=== PATIENT | female | born 1965 | race Caucasian/White ===

== ENCOUNTER 2020-08-26 22:54 | Inpatient (IN) | payer OTHER ==
[~2020-08-26] VITALS: Ht 157.5 cm; Wt 54.0 kg
[2020-08-26 23:58] VITALS: BP 116/61
[2020-08-27] VITALS (9 sets, daily range): BP systolic 89–110; BP diastolic 38–66
[2020-08-27] MEDS: fentaNYL PF VIAL 100 MCG/2 ML VIAL IVP PRN ×3 (00:22→09:36)
--- NOTE | 2020-08-27 01:03 | NUR ---
Admit from [facility] ED via EMS/rcylinder to [facility] room 210. A/O x 4. Transferred from [facility] to bed with 3 person lift. 9 Hebrew Cook Cath Chest Tube Left upper Mid-Clavicular placed at [facility] ED and in place on arrival. Continues suction hooked up to chest tube. Spoke to Dr Garza and obtained admit orders. Orientated patient to room and call light. Reviewed POC to include CT to Suction, Chest X-rays and lab draws. Verbalized understanding. Resting in bed. Call light at hand.
--- NOTE | 2020-08-27 03:20 | RAD ---
Study: XR CHEST 1V Indication: Pneumothorax. Left chest tube. Comparison: 08/26/2020 Findings: Unchanged positioning of a left pleural catheter with the tip at the apex. No pneumothorax is identified on the right or left. Asymmetric hypoattenuation at the right lung apex favored secondary to bullae formation. Flattening of the diaphragm. No confluent infiltrate or pleur al effusion. Unremarkable cardiomediastinal silhouette and tomas. Benign-appearing sclerosis along the lateral margin of the proximal right humerus. Impression: 1. Unchanged positioning of a left pleural catheter. No pneumothorax seen on either side. 2. Emphysema with flattening of the diaphragm and bullae formation best appreciated at the right lung apex. Electronically signed by: MARYELLEN PATINO MD (08/27/2020 3:17 AM) [facility] DOLOR[facility]
[2020-08-27] MEDS: ONDANSETRON PF 4 MG/2 ML VIAL. IVP PRN ×2 (05:50→17:09)
[2020-08-27 08:16] LABS: BASO % 1 % (0-3); EOS # 0.4 x10^3/uL (0.0-0.7); EOS % 6 % (0-3); HEMOGLOBIN 11.5 g/dL (12.0-15.5); LYMPH # 1.5 x10^3/uL (1.0-4.8); LYMPH % 20 % (24-48); MEAN CORPUSCULAR HEMOGLOBIN 30 pg (25-35); MEAN CORPUSCULAR HGB CONC 34 g/dL (31-37); MEAN CORPUSCULAR VOLUME 89 fL (79-100); MONO # 0.7 x10^3/uL (0.0-1.1); MONO % 10 % (0-9); NEUT # 4.6 x10^3/uL (1.8-7.7); NEUT % 64 % (31-73); PLATELET COUNT 324 x10^3/uL (140-400); RED BLOOD COUNT 3.84 x10^6/uL (3.50-5.40); RED CELL DISTRIBUTION WIDTH 12.8 % (11.5-14.5); WHITE BLOOD COUNT 7.2 x10^3/uL (4.0-11.0)
[2020-08-27 08:37] LABS: ALBUMIN 3.7 g/dL (3.4-5.0); ALBUMIN/GLOBULIN RATIO 1.2 (1.0-1.7); CALCIUM 8.6 mg/dL (8.5-10.1); CREATININE 0.7 mg/dL (0.6-1.0); GFR 87.2; POTASSIUM 4.3 mmol/L (3.5-5.1); TOTAL BILIRUBIN 1.2 mg/dL (0.2-1.0); TOTAL PROTEIN 6.9 g/dL (6.4-8.2)
[2020-08-27] MEDS ORDERED: IV NORMAL SALINE 1000ML BAG 1,000 ML IV ONE ×2 (10:30→17:15)
--- NOTE | 2020-08-27 11:48 | HP ---
ADMIT DATE: 08/26/2020 HISTORY OF PRESENT ILLNESS: The patient is a 55-year-old female patient who presented to the emergency room of [facility] with the complaint of chest pain and shortness of breath. The pain is mostly in the left side, has been constant. Pain is worse with deep breath. The pain has been persistent. She rated about 7/10, worse with deep inspiration. She also complained of some intermittent coughing episodes in the past 2 weeks. There was no history of trauma. No recent travel. Denied any chills, rigors or fever. She was investigated in the emergency room and has had an EKG that showed that she was in sinus tachycardia with a heart rate of 160 beats per minute. She does have bimodel P-waves, but no findings of acute STEMI. Her chest x-ray showed that she has large left-sided pneumothorax, for which she has a chest tube placed to intermittent suction. She also had a repeat chest x-ray, which showed well expansion of her left lung. Her white cell count was slightly elevated at 11.7. All other labs are well within normal range and the patient was transferred to [facility] to consult the ship loader. PAST MEDICAL HISTORY: Significant for COPD and tobacco use disorder. She has been smoking for the last 35 years. She is currently vaping. PAST SURGICAL HISTORY: Significant for 3 C-sections, total abdominal hysterectomy, bilateral incisional hernia repair. ALLERGIES: SHE IS ALLERGIC TO CODEINE. MEDICATIONS: She is on no medication except [id number] Tylenol or Advil. FAMILY HISTORY: She has two older brothers and one younger brother and one of the older brother has severe brain injury after he fell. Her father at the age of 27 in a plane crash. Mother is still alive at the age of 78. SOCIAL HISTORY: She is , has three daughters. She is vaping, but has been a smoker for almost 35 years. Does drink alcohol occasionally. Does not use any drugs. 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 REVIEW OF SYSTEMS: The patient denied any blurring of vision, cataracts, glaucoma or macular degeneration. Denied any earache, tinnitus or sensory deafness. Denied any nosebleed, stuffy nose or postnasal drip. Denies any sore throat, sore tongue, toothache, hoarseness of voice or difficulty swallowing. Denies any nausea, vomiting, diarrhea or constipation. Denies any hematemesis, melena, hematochezia. Denies any dysuria, frequency, hematuria. PHYSICAL EXAMINATION: GENERAL: On arrival to the emergency room, she looked well and was clearly in no apparent respiratory distress. No pallor, jaundice, cyanosis. No lymphadenopathy, no thyromegaly. No jugular venous distention. No limb edema. VITAL SIGNS: Her heart rate was 90, blood pressure was 140/85, her temperature was 98.2, respiratory rate was 16 and oxygen saturation was 96% on room air. HEAD, EYES, EARS, NOSE AND THROAT: Normocephalic, atraumatic. NECK: Supple. HEART: Normal first and second heart sounds. No gallop or murmur. CHEST: Chest central trachea, equal bilateral chest expansion, air entry. No crepitations or rhonchi. ABDOMEN: Scaphoid, soft, nontender. NEUROLOGIC: She was grossly intact. LABORATORY DATA: Showed a white cell count of 11,700, hemoglobin 12, hematocrit 37, MCV 88 and platelet count 379,000 with normal manual differential. Her serum sodium 142, potassium 4, chloride 104, bicarbonate 28, anion gap of 10, BUN 12, creatinine 0.8. Estimated GFR was 74 mL per minute. Her glucose 115, calcium was 9.3 and magnesium was 1.9. Total bilirubin, AST, ALT, alkaline phosphatase are normal. Her troponin was less than 0.017. Total protein was 7.8, albumin was 4.1 and lipase was 12. Her first chest x-ray showed the patient has large left-sided pneumothorax after which she had a chest tube placed and repeat chest x-ray showed that the left pneumothorax has resolved and the lung has completely expanded. The patient was transferred to [facility] to consult the ship loader. [facility] [place]: Darlyn TID: [id number]
--- NOTE | 2020-08-27 12:06 | NUR ---
SS following for discharge planning. SS reviewed pt chart and discussed with pt RN. Pt is from home and is currently requiring oxygen at two liters nasal canula. Chest tube in place. Pt has no home oxygen. Pulmonology consulted. SS will continue to follow for discharge planning.
--- NOTE | 2020-08-27 14:05 | PDOC ---
PULMONARY PROGRESS NOTES DATE: 08/27/20 TIME: 14:03 Vitals Vital Signs Date Time Temp Pulse Resp B/P (MAP) Pulse Ox O2 Delivery O2 Flow Rate FiO2 08/27/20 11:26 98.0 71 20 98/38 (58) 100 Nasal Cannula 2.0 98.0 Labs Laboratory Tests Test 08/27/20 07:45 White Blood Count 7.2 x10^3/uL (4.0-11.0) Red Blood Count 3.84 x10^6/uL (3.50-5.40) Hemoglobin 11.5 g/dL (12.0-15.5) Hematocrit 34.0 % (36.0-47.0) Mean Corpuscular Volume 89 fL (79-100) Mean Corpuscular Hemoglobin 30 pg (25-35) Mean Corpuscular Hemoglobin Concent 34 g/dL (31-37) Red Cell Distribution Width 12.8 % (11.5-14.5) Platelet Count 324 x10^3/uL (140-400) Neutrophils (%) (Auto) 64 % (31-73) Lymphocytes (%) (Auto) 20 % (24-48) Monocytes (%) (Auto) 10 % (0-9) Eosinophils (%) (Auto) 6 % (0-3) Basophils (%) (Auto) 1 % (0-3) Neutrophils # (Auto) 4.6 x10^3/uL (1.8-7.7) Lymphocytes # (Auto) 1.5 x10^3/uL (1.0-4.8) Monocytes # (Auto) 0.7 x10^3/uL (0.0-1.1) Eosinophils # (Auto) 0.4 x10^3/uL (0.0-0.7) Basophils # (Auto) 0.0 x10^3/uL (0.0-0.2) Sodium Level 144 mmol/L (136-145) Potassium Level 4.3 mmol/L (3.5-5.1) Chloride Level 105 mmol/L (98-107) Carbon Dioxide Level 31 mmol/L (21-32) Anion Gap 8 (6-14) Blood Urea Nitrogen 11 mg/dL (7-20) Creatinine 0.7 mg/dL (0.6-1.0) Estimated GFR (Cockcroft-Gault) 87.2 BUN/Creatinine Ratio 16 (6-20) Glucose Level 82 mg/dL (70-99) Calcium Level 8.6 mg/dL (8.5-10.1) Total Bilirubin 1.2 mg/dL (0.2-1.0) Aspartate Amino Transf (AST/SGOT) 10 U/L (15-37) Alanine Aminotransferase (ALT/SGPT) 21 U/L (14-59) Alkaline Phosphatase 73 U/L (46-116) Total Protein 6.9 g/dL (6.4-8.2) Albumin 3.7 g/dL (3.4-5.0) Albumin/Globulin Ratio 1.2 (1.0-1.7) Laboratory Tests Test 08/27/20 07:45 White Blood Count 7.2 x10^3/uL (4.0-11.0) Red Blood Count 3.84 x10^6/uL (3.50-5.40) Hemoglobin 11.5 g/dL (12.0-15.5) Hematocrit 34.0 % (36.0-47.0) Mean Corpuscular Volume 89 fL (79-100) Mean Corpuscular Hemoglobin 30 pg (25-35) Mean Corpuscular Hemoglobin Concent 34 g/dL (31-37) Red Cell Distribution Width 12.8 % (11.5-14.5) Platelet Count 324 x10^3/uL (140-400) Neutrophils (%) (Auto) 64 % (31-73) Lymphocytes (%) (Auto) 20 % (24-48) Monocytes (%) (Auto) 10 % (0-9) Eosinophils (%) (Auto) 6 % (0-3) Basophils (%) (Auto) 1 % (0-3) Neutrophils # (Auto) 4.6 x10^3/uL (1.8-7.7) Lymphocytes # (Auto) 1.5 x10^3/uL (1.0-4.8) Monocytes # (Auto) 0.7 x10^3/uL (0.0-1.1) Eosinophils # (Auto) 0.4 x10^3/uL (0.0-0.7) Basophils # (Auto) 0.0 x10^3/uL (0.0-0.2) Sodium Level 144 mmol/L (136-145) Potassium Level 4.3 mmol/L (3.5-5.1) Chloride Level 105 mmol/L (98-107) Carbon Dioxide Level 31 mmol/L (21-32) Anion Gap 8 (6-14) Blood Urea Nitrogen 11 mg/dL (7-20) Creatinine 0.7 mg/dL (0.6-1.0) Estimated GFR (Cockcroft-Gault) 87.2 BUN/Creatinine Ratio 16 (6-20) Glucose Level 82 mg/dL (70-99) Calcium Level 8.6 mg/dL (8.5-10.1) Total Bilirubin 1.2 mg/dL (0.2-1.0) Aspartate Amino Transf (AST/SGOT) 10 U/L (15-37) Alanine Aminotransferase (ALT/SGPT) 21 U/L (14-59) Alkaline Phosphatase 73 U/L (46-116) Total Protein 6.9 g/dL (6.4-8.2) Albumin 3.7 g/dL (3.4-5.0) Albumin/Globulin Ratio 1.2 (1.0-1.7) Medications Active Scripts Medications Dose Route/Sig Max Daily Dose Days Date Category No Known Medications Prior To Admisstion (Info) Each 1 Each NO HOME MEDICATIONS 08/26/20 Reported Impression . FULL CONSULT DICTATED PTX CURRENT CXR NO PTX WILL DC WALL SUCTION REPEAT CXR IN 3 HOURS D/W SHARON NESBITT MD Aug 27, 2020 14:05
[2020-08-27] MEDS ORDERED: predniSONE 10 MG TABLET PO ONE (14:15)
[2020-08-27] MEDS: ACETAMINOPHEN 325 MG TABLET. PO PRN (14:58)
--- NOTE | 2020-08-27 17:01 | RAD ---
EXAM: Chest, single view. HISTORY: Pneumothorax. COMPARISON: 08/27/2020 FINDINGS: A frontal view of the chest is obtained. There has been no change in positioning of the lef t apical pleural drainage catheter. There is biapical bullous emphysema and pleural parenchymal scarr ing. No convincing pneumothorax is seen. There is no pleural effusion. The heart is normal in size. IMPRESSION: 1. No convincing pneumothorax or change in positioning of a left apical pleural drainage catheter. 2. Biapical bullous emphysema. Electronically signed by: Ashly Bush MD (08/27/2020 4:59 PM) [id number]
--- NOTE | 2020-08-27 18:20 | NUR ---
Radiologist called at 1820 saying there were no changes on patient's chest x-ray. Per Dr. Nunez, chest tube to remain clamped for tonight.
--- NOTE | 2020-08-28 01:56 | PN ---
DATE: 08/27/2020 SUBJECTIVE: The patient is resting, slightly bumped up in bed in no apparent distress. Her chest pain is well controlled. Denied any shortness of breath. We did repeat her chest x-ray here and her lungs continued to be completely expanded. PHYSICAL EXAMINATION: GENERAL: When I examined her this morning, she looked well and was clearly in no apparent respiratory distress. She is slightly pale. No jaundice or cyanosis. No thyromegaly. No jugular distention. No edema. VITAL SIGNS: Heart rate was 60, blood pressure was 89/46, temperature was 98, respiratory rate was 20 and oxygen saturation was 100% on 2 L oxygen. HEENT: Normocephalic, atraumatic. NECK: Supple. HEART: Normal first and second sounds. No gallop or murmur. CHEST: Showed central trachea. Equal bilateral chest expansion and air entry. Vesicular breath sounds. No crepitation or rhonchi. She has a chest tube today. Pleur-Evac on the left side. ABDOMEN: Scaphoid, soft, nontender. NEUROLOGIC: She was grossly intact. LABORATORY DATA: Showed a white cell count 7200, hemoglobin 11, hematocrit 34, MCV 89 and platelet count 324,000. Normal manual differential. Her serum sodium was 144, potassium 4.3, chloride 105, bicarbonate 31, anion gap of 8, BUN 11 and creatinine 0.7. Estimated GFR was 87 mL per minute. Her glucose was 82, calcium was 8.6. Total bilirubin, AST, ALT and alkaline phosphatase were normal. Total protein was 6.9 and albumin 3.7. ASSESSMENT: This is a 55-year-old female patient with spontaneous pneumothorax, status post chest tube placement. Her lungs are well expanded. Chronic obstructive pulmonary disease. The patient has also nicotine dependence. She has been a smoker for the last 35 years and is currently vaping. The patient was strongly advised to quit smoking. Meanwhile, we will continue with the chest tube. PLAN: We have consulted Dr. Nunez for chest tube management. PETERSON/[facility]: PETERSON/codey TID: [id number]
[2020-08-28 02:51] VITALS: BP 87/46
--- NOTE | 2020-08-28 02:57 | CONS ---
DATE OF CONSULTATION: 08/27/2020 ATTENDING PHYSICIAN: Dr. Garza. REASON FOR CONSULTATION: The patient is seen in pulmonary consultation at the request of Dr. Garza for spontaneous left-sided pneumothorax. HISTORY OF PRESENT ILLNESS: The patient is a 55-year-old that has been told that she has had COPD, continues to smoke. She is actually vaping, discontinue cigarettes 9 years ago. Has been short of breath for approximately 2 weeks. Yesterday, she became acutely short of breath and has some chest discomfort, presented to [facility], had a chest x-ray revealing left-sided pneumothorax. She had a chest tube in place. She is now at [facility]. I reviewed her current x-ray, the left lung appears to be fully inflated. She does not have any air leak on chest tube. She is having some discomfort from the chest tube. Otherwise, not more short of air. She denies fever, chills or night sweats. She had COVID back in 03/2020. She actually has completed her two dose vaccination. PAST MEDICAL HISTORY: COPD, COVID-19 in 03/2020, was not hospitalized. She has no other medical history. PAST SURGICAL HISTORY: , total abdominal hysterectomy, bilateral incisional hernia repair. ALLERGIES: CODEINE. MEDICATIONS: List was reviewed. FAMILY HISTORY: Father at the age of 27 in a plane crash. Mother is still alive at the age of 78. No family history of lung cancer. SOCIAL HISTORY: She is , has three daughters, continues to vape. 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 REVIEW OF SYSTEMS: As indicated above, otherwise a 10-point system was reviewed and negative. PHYSICAL EXAMINATION: VITAL SIGNS: Stable. O2 saturation was greater than 94%, currently on 2 liters. HEENT: Eyes, the sclerae were nonicteric. NECK: Jugular venous distention was not elevated. No lymphadenopathy. CHEST: Full expansion. LUNGS: Adequate flow with no wheezes. HEART: Regular rate and rhythm with S1, S2, no S3. ABDOMEN: Soft, nontender, nondistended. EXTREMITIES: No clubbing, cyanosis or edema. DIAGNOSTIC DATA: Reviewed. Chest x-ray reviewed. No pneumothorax was seen. There is flattening of the diaphragm compatible with emphysematous changes. LABORATORY DATA: White count was normal, hemoglobin and hematocrit were noted. Electrolytes were noted. IMPRESSION: 1. 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 2. Acute exacerbation of chronic obstructive pulmonary disease. 3. History of cigarette use. 4. Current vaping. 5. Status post total abdominal hysterectomy, previous . PLAN: 1. The patient currently does not have an air leak, we will discontinue wall suction. 2. Repeat chest x-ray in 3 hours. 3. If repeat x-ray revealed no pneumothorax, clamp tube, repeat x-ray in the a.m. 4. Treat acute exacerbation of COPD with steroids. No need for antibiotics. 5. The patient instructed on the importance of discontinuing her taping. PK/[facility] [place] DR: Lisa TID: [id number]
[2020-08-28 07:00] VITALS: BP 101/56
--- NOTE | 2020-08-28 08:26 | RAD ---
EXAM: Chest, single view. HISTORY: Pneumothorax. COMPARISON: 08/27/2020 FINDINGS: A frontal view of the chest is obtained. There is a left apical pleural drainage catheter u nchanged in position. There is right to left apical bullous emphysema. No convincing pneumothorax is seen. There is no pleural effusion. The heart is normal in size. IMPRESSION: 1. Stable left apical pleural drainage catheter without evidence of a pneumothorax 2. Right greater than left apical bullous emphysema. Electronically signed by: Ashly Bush MD (08/28/2020 8:24 AM) [id number]
--- NOTE | 2020-08-28 09:35 | PDOC ---
PULMONARY PROGRESS NOTES DATE: 08/28/20 TIME: 09:35 Subjective Patient not more short of air. Vitals Vital Signs Date Time Temp Pulse Resp B/P (MAP) Pulse Ox O2 Delivery O2 Flow Rate FiO2 08/28/20 07:00 98.6 84 18 101/56 (71) 97 Room Air 98.6 08/28/20 02:51 2.0 ROS: No Nausea, No Chest Pain, No Abdominal Pain, No Increase Cough General: Alert Lungs: Clear Cardiovascular: S1, S2 Abdomen: Soft Neuro Exam: Alert Extremities: No Edema Skin: Warm Labs Laboratory Tests Test 08/27/20 07:45 White Blood Count 7.2 x10^3/uL (4.0-11.0) Red Blood Count 3.84 x10^6/uL (3.50-5.40) Hemoglobin 11.5 g/dL (12.0-15.5) Hematocrit 34.0 % (36.0-47.0) Mean Corpuscular Volume 89 fL (79-100) Mean Corpuscular Hemoglobin 30 pg (25-35) Mean Corpuscular Hemoglobin Concent 34 g/dL (31-37) Red Cell Distribution Width 12.8 % (11.5-14.5) Platelet Count 324 x10^3/uL (140-400) Neutrophils (%) (Auto) 64 % (31-73) Lymphocytes (%) (Auto) 20 % (24-48) Monocytes (%) (Auto) 10 % (0-9) Eosinophils (%) (Auto) 6 % (0-3) Basophils (%) (Auto) 1 % (0-3) Neutrophils # (Auto) 4.6 x10^3/uL (1.8-7.7) Lymphocytes # (Auto) 1.5 x10^3/uL (1.0-4.8) Monocytes # (Auto) 0.7 x10^3/uL (0.0-1.1) Eosinophils # (Auto) 0.4 x10^3/uL (0.0-0.7) Basophils # (Auto) 0.0 x10^3/uL (0.0-0.2) Sodium Level 144 mmol/L (136-145) Potassium Level 4.3 mmol/L (3.5-5.1) Chloride Level 105 mmol/L (98-107) Carbon Dioxide Level 31 mmol/L (21-32) Anion Gap 8 (6-14) Blood Urea Nitrogen 11 mg/dL (7-20) Creatinine 0.7 mg/dL (0.6-1.0) Estimated GFR (Cockcroft-Gault) 87.2 BUN/Creatinine Ratio 16 (6-20) Glucose Level 82 mg/dL (70-99) Calcium Level 8.6 mg/dL (8.5-10.1) Total Bilirubin 1.2 mg/dL (0.2-1.0) Aspartate Amino Transf (AST/SGOT) 10 U/L (15-37) Alanine Aminotransferase (ALT/SGPT) 21 U/L (14-59) Alkaline Phosphatase 73 U/L (46-116) Total Protein 6.9 g/dL (6.4-8.2) Albumin 3.7 g/dL (3.4-5.0) Albumin/Globulin Ratio 1.2 (1.0-1.7) Medications Active Scripts Medications Dose Route/Sig Max Daily Dose Days Date Category No Known Medications Prior To Admisstion (Info) Each 1 Each NO HOME MEDICATIONS 08/26/20 Reported Impression . IMPRESSION: 1. 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 2. Acute exacerbation of chronic obstructive pulmonary disease. 3. History of cigarette use. 4. Current vaping. 5. Status post total abdominal hysterectomy, previous . Plan . Updated 08/28 Chest x-ray reviewed, tube clamped overnight, no pneumothorax, will discontinue tube Obtain CT chest Discharge home today Follow-up with me in the office in October Outpatient PFT PLAN: 1. The patient currently does not have an air leak, we will discontinue wall suction. 2. Repeat chest x-ray in 3 hours. 3. If repeat x-ray revealed no pneumothorax, clamp tube, repeat x-ray in the a.m. 4. Treat acute exacerbation of COPD with steroids. No need for antibiotics. 5. The patient instructed on the importance of discontinuing her taping. SHARON PICKERING MD Aug 28, 2020 09:35
[2020-08-28 11:00] VITALS: BP 98/48
--- NOTE | 2020-08-28 12:00 | NUR ---
SS following up with discharge planning. SS reviewed pt chart and discussed with pt RN. Pt is from home and is currently on room air. Chest tube was clamped yesterday. Possible removal today. Discharge plan is to home when medically ready. SS will continue to follow for discharge planning.
[2020-08-28 15:09] VITALS: BP 97/43
--- NOTE | 2020-08-28 16:15 | RAD ---
EXAM: Chest CT without intravenous contrast. HISTORY: Pneumothorax. TECHNIQUE: Computed tomographic images of the chest were obtained without contrast. Multiplanar refor matting was performed. *One or more of the following individualized dose reduction techniques were utilized for this examina tion: 1. Automated exposure control. 2. Adjustment of the mA and/or kV according to patient size. 3. Use of iterative reconstruction technique. COMPARISON: 07/28/2020. FINDINGS: There has been interval left apical pleural drainage catheter removal. There is a small manjula unt of soft tissue gas within the anterior left chest wall due to prior catheter placement. There is a moderate left pneumothorax and small superimposed layering pleural effusion due to a hydropneumotho rax. There is biapical bullous emphysema. There is atelectasis or contusion within the left lung apex. The re are 2 mm nodules along the pleural fissures due to fissural lymph nodes. There is bilateral it sales executive ior dependent and basilar atelectasis. The heart is normal in size. There is trace pericardial fluid. There is no lymphadenopathy. There is no acute finding involving the upper abdomen. There is no suspicious osseous lesion. IMPRESSION: 1. Moderate left pneumothorax status post pleural drainage catheter removal. There is also a small la yering left pleural effusion consistent with a hydropneumothorax. 2. Biapical predominant bullous emphysema with superimposed left apical atelectasis, scarring or cont usion. Findings were discussed with Phillip, the nurse caring for the patient, at 1600 hours on 08/28/2020. FOR INTERNAL CODING PURPOSES RESULT CODE: (C) Electronically signed by: Ashly Bush MD (08/28/2020 4:13 PM) [id number]
[2020-08-28] MEDS ORDERED: LIDOCAINE 1% Multi-Dose 20 ML VIAL. INJ ONE (16:30)
[2020-08-28] MEDS: fentaNYL PF VIAL 100 MCG/2 ML VIAL IVP PRN ×4 (17:07→22:56)
--- NOTE | 2020-08-28 17:17 | PDOC4 ---
PROCEDURE Procedure Chest tube placement Indication patient with recurrent pneumothorax, status post removal of chest tube, after a 24 hours of clamping tube with no significant pneumothorax on repeat chest x-ray., CT was obtain to visualize the lungs. CT reviewed there is severe emphysematous changes along with recurrent pneumothorax Utilizing sterile technique. A Cook catheter was placed in the mid axillary intercostal space. 1% lidocaine was utilized to anesthetize the intercostal space. I enter the pleural space doing the anesthetization. There was air bubbles. A stab wound was performed with a size 11 scalpel. A Cook catheter was placed utilizing the Seldinger's technique. There was bubbling once Cook catheter was placed. There was good pleural variation. Impression recurrent spontaneous pneumothorax, patient was walking to the bathroom, and coughed. Plan insertion of a Cook pneumothorax catheter. With no immediate complications. Patient tolerated procedure well. We will obtain chest x-ray for placement placed chest tube on wall suction SHARON PICKERING MD Aug 28, 2020 17:17
--- NOTE | 2020-08-28 17:44 | RAD ---
AP chest. HISTORY: Pneumothorax AP view was taken of the chest. There is a new left chest tube. Pneumothorax noted on the CT has impr henok. No new infiltrates are noted. IMPRESSION: 1. Left chest tube in place. 2. Improved left pneumothorax. Electronically signed by: Alex Messina MD (08/28/2020 5:42 PM) [facility]
[2020-08-28 18:24] VITALS: BP 119/52
--- NOTE | 2020-08-28 18:33 | NUR ---
patient's repeat CT of chest showed a moderate pneumothorax and critical results called to me at 1612. Paged Dr. Nunez at 1613. Dr Nunez returned call at 1614. Dr. Nunez placed a L sided chest tube at approx 1645. Patient condition stable. Will continue to monitor
[2020-08-28 23:00] VITALS: BP 101/48
[2020-08-29] VITALS (7 sets, daily range): BP systolic 93–118; BP diastolic 49–61
--- NOTE | 2020-08-29 03:00 | PN ---
DATE: 08/28/2020 SUBJECTIVE: The patient was resting, slightly propped up in bed, in no apparent respiratory distress. She is awake, alert. On questioning her, she denies any complaint. Her chest tube was clamped yesterday. Her chest x-ray continued to show fully expanded left lung. PHYSICAL EXAMINATION: GENERAL: On examining her, she looks well and was clearly in no apparent respiratory distress. No pallor, jaundice, cyanosis or thyromegaly. No jugular venous distention, no limb edema. VITAL SIGNS: Her heart rate was 84, blood pressure is 101/56, temperature was 98.6, respiratory rate was 18 and oxygen saturation was 97% on room air. HEENT: Normocephalic, atraumatic. NECK: Supple. HEART: Showed normal first and second sounds. No gallop or murmur. CHEST: Central trachea, equal bilateral expansion, air entry. Vesicular breath sounds. I could not appreciate any crepitation or rhonchi. She has a left-sided chest tube that is clamped. ABDOMEN: Scaphoid, soft, nontender. NEUROLOGIC: She is grossly intact. LABORATORY DATA: No lab work done this morning. However, her chest x-ray showed that the patient has stable left apical pleural drainage catheter without evidence of pneumothorax, right greater than left apical bullous emphysema. PLAN: To obviously await the decision by the formula room worker to probably remove the catheter. I gave instructions to the nursing staff to call me if Dr. Nunez decide to discharge her home. Otherwise, we will discharge her home tomorrow. HOWARD DR: Darlyn TID: [id number]
[2020-08-29] MEDS: fentaNYL PF VIAL 100 MCG/2 ML VIAL IVP PRN ×2 (04:21→07:59)
--- NOTE | 2020-08-29 06:43 | RAD ---
Study: XR CHEST 1V Indication: Pneumothorax Comparison: 08/28/2020 Findings: Left pleural catheter tip projects the medial aspect of the left upper lung overlying the fourth rib. No definitive pneumothorax is seen on either side. No pleural effusion. Linear densities at the righ t lung base are more noticeable from the prior favored mild atelectasis. Emphysema with bullae. Uncha nged cardiomediastinal silhouette. Impression: No appreciable pneumothorax on either side. Left pleural catheter tip projects over the fourth rib. S treaky densities at the right lung base are more noticeable from the prior but favored on account of atelectasis. Electronically signed by: MARYELLEN PATINO MD (08/29/2020 6:40 AM) [facility]
--- NOTE | 2020-08-29 08:51 | PDOC ---
PULMONARY PROGRESS NOTES DATE: 08/29/20 TIME: 08:[address] placed on 08/[address] site no sob Vitals Vital Signs Date Time Temp Pulse Resp B/P (MAP) Pulse Ox O2 Delivery O2 Flow Rate FiO2 08/29/20 07:59 98 Nasal Cannula 08/29/20 07:00 98.2 77 16 118/59 (78) 1.0 98.2 ROS: No Nausea, No Chest Pain, No Abdominal Pain, No Increase Cough General: Alert Lungs: Clear, Other (l ct) Cardiovascular: S1, S2 Abdomen: Soft Neuro Exam: Alert Extremities: No Edema Skin: Warm Medications Active Scripts Medications Dose Route/Sig Max Daily Dose Days Date Category No Known Medications Prior To Admisstion (Info) Each 1 Each NO HOME MEDICATIONS 08/26/20 Reported Comments 08/29 cxr reviewed No appreciable pneumothorax on either side. Left pleural catheter tip projects over the fourth rib. Streaky densities at the right lung base are more noticeable from the prior but favored on account of atelectasis. Impression . IMPRESSION: 1. 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 2. Acute exacerbation of chronic obstructive pulmonary disease. 3. History of cigarette use. 4. Current vaping. 5. Status post total abdominal hysterectomy, previous . Plan . Updated 08/29 ptx re occured s/p new ct 08/[address] chest reviewed Outpatient PFT advised to quit smoking for ever pain control per dr page discussed w rn, dr page Updated 08/28 Chest x-ray reviewed, tube clamped overnight, no pneumothorax, will discontinue tube Obtain CT chest Discharge home today Follow-up with me in the office in October Outpatient PFT PLAN: 1. The patient currently does not have an air leak, we will discontinue wall suction. 2. Repeat chest x-ray in 3 hours. 3. If repeat x-ray revealed no pneumothorax, clamp tube, repeat x-ray in the a.m. 4. Treat acute exacerbation of COPD with steroids. No need for antibiotics. 5. The patient instructed on the importance of discontinuing her taping. JLUIS CHAVEZ MD Aug 29, 2020 08:51
[2020-08-29] MEDS: traMADol 50 MG TABLET PO PRN ×3 (10:23→20:27)
--- NOTE | 2020-08-29 14:19 | PN ---
DATE: 08/29/2020 SUBJECTIVE: The patient has had a spontaneous pneumothorax for which a chest tube was placed at [facility]. Her lung has expanded completely and the chest tube was removed yesterday morning. Unfortunately, she apparently developed shortness of breath. Apparently, after the chest tube was removed, she developed shortness of breath, although I do not have any record of that and she has had a CT scan of the abdomen done around 4:00 o'clock yesterday afternoon, which showed that she was found to have moderate left pneumothorax, status post pleural drainage catheter removal. There is also small layering left side pleural effusion consistent with hydropneumothorax. She has also biapical predominant bullous emphysema with superimposed left apical atelectasis, scarring or contusion and apparently, Dr. Nunez has placed another chest tube yesterday and her chest x-ray this morning showed that the pneumothorax has completely resolved. She has left pleural catheter tip projects over the 4th rib. She has streaky densities at the right lung base, are more noticeable from prior, but favored on account of atelectasis. The patient continued to complain of severe pain especially when she tries to take a deep breath or move. PHYSICAL EXAMINATION: GENERAL: When I examined her, she looked well, pale, not jaundiced, cyanosed, or thyromegaly, no jugular venous distention, no limb edema. VITAL SIGNS: Heart rate was 77, blood pressure is 118/59, temperature was 98.2, respiratory rate was 16 and oxygen saturation was 100% on 1 liter of oxygen. HEENT: Normocephalic, atraumatic. NECK: Supple. HEART: Showed normal first and second heart sounds, no gallop, rub or murmur. CHEST: Showed central trachea. Equal bilateral chest expansion, air entry, vesicular breath sounds. No crepitation or rhonchi. ABDOMEN: Distended, soft, nontender. NEUROLOGIC: She is grossly intact. Her intake was 1000. Output was 1450. LABORATORY DATA: No lab works available this morning. ASSESSMENT AND PLAN: Recurrent left-sided pneumothorax with another chest tube placed in the lung. Her left lung is completely expanded. The patient continued to be with chest tube to intermittent suction. Continue with oxygen therapy. Continue with pain management. PETERSON/NEFTALI DR: PETERSON/codey TID: [id number]
[2020-08-29] MEDS: ONDANSETRON PF 4 MG/2 ML VIAL. IVP PRN (20:26)
[2020-08-30] MEDS: traMADol 50 MG TABLET PO PRN (00:39)
[2020-08-30] MEDS: ONDANSETRON PF 4 MG/2 ML VIAL. IVP PRN ×2 (03:08→10:12)
[2020-08-30 03:10] VITALS: BP 113/56
--- NOTE | 2020-08-30 06:00 | RAD ---
Single view chest dated 08/30/2020. Comparison made to 08/29/2020. CLINICAL INDICATION: Follow-up pneumothorax. FINDINGS: Single upright portable exam performed. Heart and mediastinal contours are stable. Smallbore chest tu be on the left, similar position. There is no significant pneumothorax. Possible small amount of pleu ral gas at the left apex, unchanged. There is some patchy airspace disease at the bilateral lung base s, similar given differences in technique. No new infiltrate or pleural effusion. IMPRESSION: No significant interval change compared to 08/29/2020. Electronically signed by: Pillo Baker MD (08/30/2020 5:57 AM) JACOB
--- NOTE | 2020-08-30 06:50 | PDOC ---
PULMONARY PROGRESS NOTES DATE: 08/30/20 TIME: 06:[address] placed on 08/28 on 02 pain better sob better denies cough Vitals Vital Signs Date Time Temp Pulse Resp B/P (MAP) Pulse Ox O2 Delivery O2 Flow Rate FiO2 08/30/20 03:10 98.1 68 21 113/56 (75) 96 Nasal Cannula 2.0 98.1 ROS: No Nausea, No Chest Pain, No Abdominal Pain, No Increase Cough General: Alert Lungs: Clear, Other (l ct) Cardiovascular: S1, S2 Abdomen: Soft Neuro Exam: Alert Extremities: No Edema Skin: Warm Medications Active Scripts Medications Dose Route/Sig Max Daily Dose Days Date Category No Known Medications Prior To Admisstion (Info) Each 1 Each NO HOME MEDICATIONS 08/26/20 Reported Comments 08/30 There is no significant pneumothorax. Possible small amount of pleural gas at the left apex 08/29 cxr reviewed No appreciable pneumothorax on either side. Left pleural catheter tip projects over the fourth rib. Streaky densities at the right lung base are more noticeable from the prior but favored on account of atelectasis. Impression . IMPRESSION: 1. 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 2. Acute exacerbation of chronic obstructive pulmonary disease. 3. History of cigarette use. 4. Current vaping. 5. Status post total abdominal hysterectomy, previous . Plan . Updated 08/30 ptx re occured s/p new ct 08/28 cxr reviewed no sig ptx ct to water seal CT chest reviewed Outpatient PFT advised to quit smoking for ever pain control per dr page discussed dr camilo saenz rn Updated 08/29 ptx re occured s/p new ct 08/[address] chest reviewed Outpatient PFT advised to quit smoking for ever pain control per dr page discussed dr camilo saenz rn Updated 08/28 Chest x-ray reviewed, tube clamped overnight, no pneumothorax, will discontinue tube Obtain CT chest Discharge home today Follow-up with me in the office in October Outpatient PFT PLAN: 1. The patient currently does not have an air leak, we will discontinue wall suction. 2. Repeat chest x-ray in 3 hours. 3. If repeat x-ray revealed no pneumothorax, clamp tube, repeat x-ray in the a.m. 4. Treat acute exacerbation of COPD with steroids. No need for antibiotics. 5. The patient instructed on the importance of discontinuing her taping. JLUIS CHAVEZ MD Aug 30, 2020 06:50
[2020-08-30 07:55] VITALS: BP 109/70
[2020-08-30 08:16] LABS: HEMATOCRIT 34.3 % (36.0-47.0); HEMOGLOBIN 11.6 g/dL (12.0-15.5); RED BLOOD COUNT 3.89 x10^6/uL (3.50-5.40); RED CELL DISTRIBUTION WIDTH 12.7 % (11.5-14.5); WHITE BLOOD COUNT 10.5 x10^3/uL (4.0-11.0)
[2020-08-30 08:32] LABS: ALBUMIN 3.8 g/dL (3.4-5.0); ALBUMIN/GLOBULIN RATIO 1.2 (1.0-1.7); CALCIUM 8.7 mg/dL (8.5-10.1); CREATININE 0.7 mg/dL (0.6-1.0); GFR 87.2; POTASSIUM 3.7 mmol/L (3.5-5.1); TOTAL BILIRUBIN 0.8 mg/dL (0.2-1.0)
[2020-08-30] MEDS: ACETAMINOPHEN 325 MG TABLET. PO PRN ×2 (10:16→22:16)
[2020-08-30 10:41] VITALS: BP 99/51
--- NOTE | 2020-08-30 11:01 | PN ---
DATE: 08/30/2020 SUBJECTIVE: The patient is resting, slightly propped up, sleeping comfortably, in no apparent distress. She continued with intermittent suction. However, her lung has completely expanded as per x-ray report and clinically her pain is much better controlled with tramadol; however, she is having nausea, for which she is on Zofran. PHYSICAL EXAMINATION: GENERAL: When I examined her this morning, she looked well and was clearly in no apparent respiratory distress, pale, but no jaundice, cyanosis or thyromegaly. No jugular venous distention or limb edema. VITAL SIGNS: Her heart rate was 68, blood pressure is 113/56, temperature was 98.1, respiratory rate was 21 and oxygen saturation was 96% on 2 liters of oxygen. HEAD, EYES, EARS, NOSE AND THROAT: Normocephalic, atraumatic. NECK: Supple. HEART: Normal first and second heart sounds, no gallop or murmur. CHEST: Shows central trachea. Good bilateral chest expansion, air entry, vesicular breath sounds. I could not appreciate any crepitation or rhonchi. She has a chest tube to the left hemithorax intermittent suction. ABDOMEN: Scaphoid, soft, nontender. NEUROLOGIC: She is grossly intact. Her intake over the last 24 hours was 650, output was 325. LABORATORY DATA: Today's labs are still pending at the time of this dictation. IMAGING: Her chest x-ray this morning showed that there is no significant interval change. Heart and mediastinal contours are stable. A small bore chest tube on the left, still in similar position. There is no significant pneumothorax, possible small amount of pleural gas at the left apex, unchanged. PLAN: Obviously to continue with chest tube management. Continue with pain management. According to the customer field representative that she would be clamped tomorrow for 24 hour after which tube will be hopefully removed. If she has recurrence of pneumothorax, she probably needs to be seen by cardiothoracic surgeon for video-assisted thoracoscopy and pleurodesis. PETERSON/PETE DR: Darlyn TID: [id number]
[2020-08-30 14:25] VITALS: BP 98/44
[2020-08-30 19:45] VITALS: BP 102/49
[2020-08-30 22:45] VITALS: BP 104/76
[2020-08-31 03:50] VITALS: BP 104/54
[2020-08-31] MEDS: ACETAMINOPHEN 325 MG TABLET. PO PRN ×2 (06:28→15:49)
[2020-08-31] MEDS: PANTOPRAZOLE 40 MG TABLET.DR. PO SCH (06:34)
[2020-08-31 07:00] VITALS: BP 103/36
--- NOTE | 2020-08-31 08:24 | PN ---
DATE: 08/31/2020 SUBJECTIVE: The patient is resting, slightly propped up in bed, in no apparent distress. On questioning her, she stated that she has mild discomfort and no pain at all at rest. Denied any other complaint. The nursing staff did not voice any concerns that she has generally uneventful night. In fact, she did not care for narcotics and took only Tylenol. PHYSICAL EXAMINATION: GENERAL: When I examined her this morning, she looked pale, no jaundice, cyanosis or thyromegaly. No jugular venous distention. No limb edema. VITAL SIGNS: Her heart rate was 76, blood pressure is 104/54, temperature 98.4, respiratory rate was 18 and oxygen saturation was 99% on 2 liters of oxygen. HEAD, EYES, EARS, NOSE AND THROAT: Normocephalic, atraumatic. NECK: Supple. HEART: Showed normal first and second heart sounds, no gallop, rub or murmur. CHEST: Shows central trachea, equal bilateral chest expansion, air entry. No crepitation or rhonchi. She has a chest tube to underwater seal. ABDOMEN: Scaphoid, soft, nontender. NEUROLOGIC: She is grossly intact. Her intake was 480, output was 1600. LABORATORY DATA: As of yesterday, her serum sodium 140, potassium 3.7, chloride 102, bicarbonate 29, anion gap of 9, BUN 14, creatinine 0.7. Estimated GFR was 87 mL per minute. Her glucose was 82, calcium was 8.7. Total bilirubin, AST, ALT, alkaline phosphatase were normal. Total protein 7, albumin was 3.8. Her serum sodium was 10.5. Her white cell count was 10.5, hemoglobin 11.6, hematocrit 34, MCV 88 and platelet count 327,000. ASSESSMENT: Spontaneous pneumothorax, treated initially with chest tube. Unfortunately, the pneumothorax occurred after the removal of the chest tube and another one was put in. She continues to have the chest tube to underwater seal. The patient has chronic obstructive pulmonary disease and multiple emphysematous bullae, more so on the right apex than the left. PLAN: To continue with chest tube management. Continue with pain management. Her lungs continued to be completely expanded and she might have her tube clamped today for it to be removed tomorrow. [place]ERSON[place] [place]: Darlyn TID: [id number]
--- NOTE | 2020-08-31 10:27 | RAD ---
EXAM: Chest, single view. HISTORY: Pneumothorax. COMPARISON: 08/30/2020 FINDINGS: A frontal view of the chest obtained. There is a left pleural drainage catheter overlying t he left upper thorax. No convincing pneumothorax is seen. There is bilateral apical bullous emphysema and suspected infrahilar atelectasis. The heart is normal in size. IMPRESSION: 1. Left pleural drainage catheter unchanged in position. No pneumothorax is seen. 2. Biapical bullous emphysema. Electronically signed by: Ashly Bush MD (08/31/2020 10:24 AM) [id number]
--- NOTE | 2020-08-31 10:38 | PDOC ---
PULMONARY PROGRESS NOTES DATE: 08/31/20 TIME: 10:33 Subjective PT. remains on 2 liters NC denies increased SOA or cough CT to water seal -- no leak on exam Vitals Vital Signs Date Time Temp Pulse Resp B/P (MAP) Pulse Ox O2 Delivery O2 Flow Rate FiO2 08/31/20 07:00 98.1 66 18 103/36 (58) 98 Nasal Cannula 2.0 98.1 ROS: No Nausea, No Chest Pain, No Abdominal Pain, No Increase Cough General: Alert Lungs: Clear, Other (l ct) Cardiovascular: S1, S2 Abdomen: Soft Neuro Exam: Alert, Oriented Extremities: No Edema Skin: Warm, Dry Labs Laboratory Tests Test 08/30/20 06:10 White Blood Count 10.5 x10^3/uL (4.0-11.0) Red Blood Count 3.89 x10^6/uL (3.50-5.40) Hemoglobin 11.6 g/dL (12.0-15.5) Hematocrit 34.3 % (36.0-47.0) Mean Corpuscular Volume 88 fL (79-100) Mean Corpuscular Hemoglobin 30 pg (25-35) Mean Corpuscular Hemoglobin Concent 34 g/dL (31-37) Red Cell Distribution Width 12.7 % (11.5-14.5) Platelet Count 327 x10^3/uL (140-400) Sodium Level 140 mmol/L (136-145) Potassium Level 3.7 mmol/L (3.5-5.1) Chloride Level 102 mmol/L (98-107) Carbon Dioxide Level 29 mmol/L (21-32) Anion Gap 9 (6-14) Blood Urea Nitrogen 14 mg/dL (7-20) Creatinine 0.7 mg/dL (0.6-1.0) Estimated GFR (Cockcroft-Gault) 87.2 BUN/Creatinine Ratio 20 (6-20) Glucose Level 82 mg/dL (70-99) Calcium Level 8.7 mg/dL (8.5-10.1) Total Bilirubin 0.8 mg/dL (0.2-1.0) Aspartate Amino Transf (AST/SGOT) 13 U/L (15-37) Alanine Aminotransferase (ALT/SGPT) 28 U/L (14-59) Alkaline Phosphatase 68 U/L (46-116) Total Protein 7.0 g/dL (6.4-8.2) Albumin 3.8 g/dL (3.4-5.0) Albumin/Globulin Ratio 1.2 (1.0-1.7) Medications Active Scripts Medications Dose Route/Sig Max Daily Dose Days Date Category No Known Medications Prior To Admisstion (Info) Each 1 Each NO HOME MEDICATIONS 08/26/20 Reported Comments 08/31 CXR IMPRESSION: 1. Left pleural drainage catheter unchanged in position. No pneumothorax is seen. 2. Biapical bullous emphysema. 08/30 There is no significant pneumothorax. Possible small amount of pleural gas at the left apex 08/29 cxr reviewed No appreciable pneumothorax on either side. Left pleural catheter tip projects over the fourth rib. Streaky densities at the right lung base are more noticeable from the prior but favored on account of atelectasis. Impression . IMPRESSION: 1. Spontaneous pneumothorax secondary to underlying chronic obstructive pulmonary disease of the bollus/emphysematous type. 2. Acute exacerbation of chronic obstructive pulmonary disease. 3. History of cigarette use. 4. Current vaping. 5. Status post total abdominal hysterectomy, previous . Plan . PLAN Continue supplemental oxygent o keep sat above 92%, on 2 liters NC Continue chest tube-- no leak on exam, will clamp for 24 hours Repeat CXR in AM NEBS IS at bedside If PTX is not resolved pt. may be candidate for endobronchial valve ptx re occurred now s/p new ct 08/28 cxr reviewed no sig ptx CT chest reviewed -- severe bollus lung disease Outpatient PFT advised to quit smoking for ever D/W ANAYELI TEMPLETON MD Aug 31, 2020 10:38
--- NOTE | 2020-08-31 10:49 | NUR ---
assumed care at 0930. resting in recliner. chest tube is to water seal at this time. received order to clamp for 24 hrs. CN/supervisor silvering department is responsible for the telemetry this shift
[2020-08-31 11:00] VITALS: BP 99/39
--- NOTE | 2020-08-31 11:00 | NUR ---
chest tube clamped. instructed to call if increase in pain, difficulty breathing --verbalized understanding. prune juice given for bowels
[2020-08-31 15:00] VITALS: BP 101/41
--- NOTE | 2020-08-31 15:41 | NUR ---
SW following. Discussed with RN, pt from home, 2L (does not use oxygen at home), pt has a chest tube. Pulmonology following. Pt will need a 6 minute walk prior to discharge if still requiring oxygen. SW will continue to follow.
[2020-08-31 19:45] VITALS: BP 95/47
[2020-08-31 23:25] VITALS: BP 89/67
[2020-09-01] VITALS (18 sets, daily range): BP systolic 92–122; BP diastolic 47–67
[2020-09-01] MEDS: ACETAMINOPHEN 325 MG TABLET. PO PRN (04:29)
[2020-09-01] MEDS: PANTOPRAZOLE 40 MG TABLET.DR. PO SCH (07:30)
--- NOTE | 2020-09-01 09:02 | PDOC ---
PULMONARY PROGRESS NOTES DATE: 09/01/20 TIME: 08:56 Subjective PT. remains on 2 liters NC mild increased SOA CT clamped overnight, large PTX Vitals Vital Signs Date Time Temp Pulse Resp B/P (MAP) Pulse Ox O2 Delivery O2 Flow Rate FiO2 09/01/20 07:00 98.4 85 16 116/65 (82) 96 Nasal Cannula 2.0 98.4 ROS: No Nausea, No Chest Pain, No Abdominal Pain, No Increase Cough General: Alert Lungs: Other (decrease bs left) Cardiovascular: S1, S2 Abdomen: Soft Neuro Exam: Alert, Oriented Extremities: No Edema Skin: Warm, Dry Medications Active Scripts Medications Dose Route/Sig Max Daily Dose Days Date Category No Known Medications Prior To Admisstion (Info) Each 1 Each NO HOME MEDICATIONS 08/26/20 Reported Comments 09/01 CXR IMPRESSION: large left PTX 08/30 There is no significant pneumothorax. Possible small amount of pleural gas at the left apex 08/29 cxr reviewed No appreciable pneumothorax on either side. Left pleural catheter tip projects over the fourth rib. Streaky densities at the right lung base are more noticeable from the prior but favored on account of atelectasis. Impression . IMPRESSION: 1. Spontaneous pneumothorax secondary to underlying chronic obstructive pulmonary disease and severe upper lobe bullous lung disease 2. Acute exacerbation of chronic obstructive pulmonary disease. 3. History of cigarette use. 4. Current vaping. 5. Status post total abdominal hysterectomy, previous . Plan . PLAN D/W Pt and IR. will replace current cook catheter to 12 F chest tube If no improvement, will need endobronchial valve Continue supplemental oxygent o keep sat above 92%, on 2 liters NC Daily cxr NEBS IS at bedside CT chest reviewed -- severe bollus lung disease Outpatient PFT advised to quit smoking for ever D/W RN / IR ANAYELI MOTLEY MD Sep 01, 2020 09:02
--- NOTE | 2020-09-01 09:38 | RAD ---
XR CHEST 1V History: Pneumothorax. Comparison: Multiple priors, most recent 08/31/2020 Technique: Portable AP chest radiograph. Findings: Left apically oriented pleural catheter, unchanged. Recurrent large left pneumothorax. Emphysematous change with right upper lobe bulla. Cardiac silhouette within normal limits. Right proximal humerus s clerotic density likely chondroma. Impression: 1. Recurrent large left pneumothorax. Electronically signed by: Florentin Shin MD (09/01/2020 9:36 AM) [facility]
[2020-09-01 10:45] LABS: PROTHROMBIN TIME PATIENT 13.9 SEC (11.7-14.0)
--- NOTE | 2020-09-01 10:55 | PN ---
DATE: 09/01/2020 SUBJECTIVE: The patient is resting, slightly propped up in bed, no apparent distress. On questioning her, she denied any chest pain or shortness of breath. She is more frustrated. She has been in bed for a long time. Her chest tube was removed yesterday and was reinserted. Unfortunately, a repeat chest x-ray showed that she has large left-sided pneumothorax and apparently the plan is for her to have a larger 12-Irish chest tube placed by the interventional radiologist and if this does not work, the patient will be transferred to [facility] for endobronchial valve. PHYSICAL EXAMINATION: GENERAL: When I examined her, she looked well and was clearly in no apparent respiratory distress. No pallor, jaundice, cyanosis, or thyromegaly. No jugular venous distention. No lower limb edema. VITAL SIGNS: Heart rate was 85, blood pressure is 116/65, temperature was 98.4, respiratory rate was 16 and oxygen saturation was 96% on 2 liters of oxygen. HEAD, EYES, EARS, NOSE AND THROAT: Normocephalic, atraumatic. NECK: Supple. HEART: Showed normal first and second heart sounds. No gallop, rub or murmur. LUNGS: Clear to auscultation. No crepitation or rhonchi. ABDOMEN: Scaphoid, soft, nontender. NEUROLOGIC: She is grossly intact. ASSESSMENT: 1. The patient has now a large left-sided pneumothorax for which a 12-Irish chest tube was planned to be placed by the interventional radiologist. 2. Chronic obstructive pulmonary disease, tobacco use disorder and recently vaping. PLAN: Plan is to continue with oxygen supplementation. Continue with pain management. BETSY WOODY: Darlyn TID: [id number]
--- NOTE | 2020-09-01 11:23 | NUR ---
SS following up with discharge planning. SS reviewed pt chart and discussed with pt RN. Pt is currently requiring oxygen at two liters nasal canula. Pt has no home oxygen. COVID19 negative. Pt chest x-ray worse. Pt getting new chest tube today. Pulmonology following. SS will continue to follow for discharge planning.
[2020-09-01] MEDS ORDERED: LIDOCAINE WITH 8.4% SOD BICARB 3 ML DISP.SYRIN. ONE (12:31)
[2020-09-01] MEDS ORDERED: MIDAZOLAM HCL/PF 2 MG/2 ML VIAL. ONE (13:57)
[2020-09-01] MEDS ORDERED: fentaNYL PF VIAL 100 MCG/2 ML VIAL ONE (13:57)
[2020-09-01] MEDS ORDERED: fentaNYL PF VIAL 100 MCG/2 ML VIAL IV ONE (14:30)
[2020-09-01] MEDS ORDERED: LIDOCAINE WITH 8.4% SOD BICARB 3 ML DISP.SYRIN. IJ ONE (14:30)
[2020-09-01] MEDS ORDERED: MIDAZOLAM HCL/PF 2 MG/2 ML VIAL. IV ONE (14:30)
--- NOTE | 2020-09-01 14:32 | NUR ---
[facility]I CALLED TO REPORT PT IS FINISHED WITH NEW CHEST TUBE. SITE IS JUST LEFT OF ORIGINAL PLACEMENT. 10FRENCH, PIGTAIL. VERSED 2MG IVP AND FENTANYL 50MCG 1VP. KEEP CONTINUOUS SUCTION AT -20.
[2020-09-01] MEDS: MORPHINE SULFATE 4 MG/ML VIAL. IV PRN ×2 (14:46→18:19)
[2020-09-01] MEDS: fentaNYL PF VIAL 100 MCG/2 ML VIAL IVP PRN ×2 (15:47→21:16)
[2020-09-02] MEDS: ONDANSETRON PF 4 MG/2 ML VIAL. IVP PRN (00:59)
[2020-09-02] MEDS: traMADol 50 MG TABLET PO PRN ×3 (01:00→23:10)
[2020-09-02 03:10] VITALS: BP 105/52
[2020-09-02 07:00] VITALS: BP 98/53
[2020-09-02] MEDS: PANTOPRAZOLE 40 MG TABLET.DR. PO SCH (07:16)
--- NOTE | 2020-09-02 08:45 | NUR ---
KARLA BOTELLO APPLIED TO BLE. Addendum: 09/02/20 at 1454 by BRENDA ZAMORA RN RN NOTE ENTERED ON WRONG PT.
--- NOTE | 2020-09-02 09:29 | RAD ---
09/02/2020 7:25 AM Procedure: 1. Removal of pre-existing left chest tube 2. Placement of new left chest tube under CT guidance Clinical Indication: Previously placed Left Chest Tube Not Functioning Discussion: The procedure was explained in its entirety to the patient or the patients designated credit and collections representative by a member of the treatment team, including a discussion of the risks, benefits and commonly accepted alternatives to the procedure, as well as the expected consequences of no therapy whatsoever. Discussion of the risks included, but was not limited to, those that are most frequent and those that are rare but possibly severe or life-threatening, as well as the possibility of unforeseen complications. All elements of maximal sterile barrier technique including the use of a cap, mask, sterile gown, sterile gloves, large sterile sheet, appropriate hand hygiene, and 2% chlorhexidine for cutaneous antisepsis (or acceptable alternative antiseptic per current guidelines) were followed for this procedure. CT imaging redemonstrates a large left pneumothorax. Pre-existing chest tube in place. The pre-existing chest tube was removed. Sterile dressings were applied. Catheter was found to be obstructed. The anterior chest prepped and draped using sterile barrier technique. 1% lidocaine was used for local anesthesia. Under intermittent CT guidance a 5 Tunisian sheath needle was advanced into the pleural space. A guidewire was advanced into the pleural space over which following dilatation a 10 Tunisian pigtail drain was placed. Air was freely aspirated. The catheter was secured in place and sterile dressings were applied. Position was confirmed with CT imaging. The procedures performed under conscious sedation including continuous cardiopulmonary monitoring via dedicated sedation nurse. [id number] sedation time: 20 Impression: Removal of pre-existing thoracostomy tube and placement of the new 10 Tunisian left thoracostomy tube PQRS Compliance Statement: One or more of the following individualized dose reduction techniques were utilized for this examination: 1. Automated exposure control 2. Adjustment of the mA and/or kV according to patient size 3. Use of iterative reconstruction technique
--- NOTE | 2020-09-02 09:51 | RAD ---
EXAM: Chest, single view. HISTORY: Pneumothorax. COMPARISON: 09/01/2020 FINDINGS: A frontal view of the chest is obtained. There has been interval decrease in a now tiny lef t pneumothorax. There has been placement of a left pleural drainage catheter on the lateral left uppe r mid thorax. There is bilateral apical bullous emphysema. There is no infiltrate. The heart is chet l in size. IMPRESSION: 1. Significant interval decrease in a tiny left pneumothorax status post pleural drainage catheter re placement. 2. Biapical bullous emphysema. Electronically signed by: Ashly Bush MD (09/02/2020 9:49 AM) [id number]
--- NOTE | 2020-09-02 10:56 | PDOC ---
PULMONARY PROGRESS NOTES DATE: 09/02/20 TIME: 10:52 Subjective PT. remains on 2 liters NC 12F chest tube placed 09/01 sig improvement in left ptx, + air leak Vitals Vital Signs Date Time Temp Pulse Resp B/P (MAP) Pulse Ox O2 Delivery O2 Flow Rate FiO2 09/02/20 08:00 Nasal Cannula 2.0 09/02/20 07:00 98.4 78 20 98/53 (68) 96 98.4 ROS: No Nausea, No Chest Pain, No Abdominal Pain, No Increase Cough General: Alert Lungs: Other (decrease bs left) Cardiovascular: S1, S2 Abdomen: Soft Neuro Exam: Alert, Oriented Extremities: No Edema Skin: Warm, Dry Labs Laboratory Tests Test 09/01/20 10:00 Prothrombin Time 13.9 SEC (11.7-14.0) Prothromb Time International Ratio 1.1 (0.8-1.1) SARS-CoV-2 RNA ([place]) Negative (Negative) SARS-CoV-2 Antigen ([place]) Negative (NEGATIVE) Medications Active Scripts Medications Dose Route/Sig Max Daily Dose Days Date Category No Known Medications Prior To Admisstion (Info) Each 1 Each NO HOME MEDICATIONS 08/26/20 Reported Comments 09/02 sig improvement in left PTX 09/01 CXR IMPRESSION: large left PTX 08/30 There is no significant pneumothorax. Possible small amount of pleural gas at the left apex 08/29 cxr reviewed No appreciable pneumothorax on either side. Left pleural catheter tip projects over the fourth rib. Streaky densities at the right lung base are more noticeable from the prior but favored on account of atelectasis. Impression . IMPRESSION: 1. Spontaneous pneumothorax secondary to underlying chronic obstructive pulmonary disease and severe upper lobe bullous lung disease 2. Acute exacerbation of chronic obstructive pulmonary disease. 3. History of cigarette use. 4. Current vaping. 5. Status post total abdominal hysterectomy, previous . 6. 12F chest tube placed 09/01, sig improvement in left ptx, + air leak Plan . PLAN D/W Pt 12F chest tube placed 09/01, sig improvement in left ptx, + air leak If no improvement in air leak, will need endobronchial valve, other option will be VAT/ bullectomy Continue supplemental oxygent o keep sat above 92%, on 2 liters NC Daily cxr NEBS IS at bedside CT chest reviewed -- severe bollus lung disease Outpatient PFT advised to quit smoking for ever D/W ANAYELI TEMPLETON MD Sep 02, 2020 10:56
[2020-09-02 11:00] VITALS: BP 103/46
--- NOTE | 2020-09-02 12:24 | NUR ---
SS following up with discharge planning. SS reviewed pt chart and discussed with pt RN. Pt is currently requiring oxygen at two liters nasal canula. COVID19 negative. Pt has no home oxygen. Chest tube in place. Pt had chest x-ray today. Discharge plan is to home when medically ready. SS will continue to follow for discharge planning.
[2020-09-02 15:00] VITALS: BP 101/50
--- NOTE | 2020-09-02 19:30 | NUR ---
Pt in bed assessment completed vss poc explained pt rated her pain 2/10 at time of assessment will resume care and continue to monitor pt. Call light in reach.
[2020-09-02 19:48] VITALS: BP 108/55
[2020-09-02 22:53] VITALS: BP 99/43
--- NOTE | 2020-09-03 00:37 | PN ---
DATE: 09/02/2020 SUBJECTIVE: The patient is resting, slightly propped up in bed in no apparent distress, continued to complain of some discomfort in her left shoulder, but otherwise denied any other complaint. She has had her chest tube placed and her lungs are completely expanded. OBJECTIVE: GENERAL: On examining her, she was pale, somewhat cachectic, but no jaundice, cyanosis or thyromegaly. No jugular venous distention or limb edema. VITAL SIGNS: Her heart rate was 78, blood pressure was 98/53, temperature was 98.4, respiratory rate 20, and oxygen saturation was 96% on 2 liters of oxygen. HEAD, EYES, EARS, NOSE AND THROAT: Normocephalic, atraumatic. NECK: Supple. HEART: Normal first and second heart sounds. No gallop, rub or murmur. CHEST: Shows central trachea. Equal bilateral expansion, air entry, vesicular breath sounds. No crepitation or rhonchi. She has a chest tube to the left hemithorax at around second intercostal space to the underwater seal. ABDOMEN: Scaphoid, soft and nontender. NEUROLOGIC: She was grossly intact. ASSESSMENT: 1. Spontaneous pneumothorax secondary to underlying chronic obstructive pulmonary disease and severe upper lobe bullous lung disease. 2. Acute exacerbation of chronic obstructive pulmonary disease. 3. History of cigarette use. 4. Currently, vaping. 5. She is status post chest tube placement, it was larger caliber. PLAN: Plan is to continue with this for a few days ____ and hopefully remove it. She continued to have pneumothorax. The patient will be transferred to [facility] for endobronchial valve as per the fill manager. PETERSON/JENNIFER/MADISON DR: PETERSON/codey TID: [id number]
[2020-09-03 03:00] VITALS: BP 100/49
[2020-09-03] MEDS: PANTOPRAZOLE 40 MG TABLET.DR. PO SCH (06:31)
[2020-09-03 07:00] VITALS: BP 95/46
--- NOTE | 2020-09-03 09:03 | RAD ---
Exam Date: 09/03/2020 7:55 AM XR CHEST 1V Indication: Reason: PTX / Spl. Instructions: / History: Comparison: September 02, 2020 FINDINGS/ IMPRESSION: Left chest catheter remains in place. Left pneumothorax is increased, now small to moderate in size a nd seen in both the apex and the base of the hemithorax. The cardiac silhouette and pulmonary vasculature are within normal limits. Mild right basilar subsegm ental atelectasis is seen. No pleural effusion. Electronically signed by: Prabhjot Judge MD (09/03/2020 9:00 AM) [id number]
[2020-09-03 11:00] VITALS: BP 95/51
--- NOTE | 2020-09-03 11:20 | NUR ---
SS following up with discharge planning. SS reviewed pt chart and discussed with pt RN. Pt is currently requiring oxygen at two liters nasal canula. COVID19 negative. Chest tube in place. Dr. Seaman attempted flushing chest tube today. Transfer to [facility], ; fax [phone], for Endobronchial Valve recommended. SS contacted [facility] transfer team and made request for transfer. SS spoke with Mariely. SS contacted Radiology and requested that images be clouded to [facility]. SS faxed records as requested. Packet and transfer form on the chart. SS will continue to follow for discharge planning.
--- NOTE | 2020-09-03 11:30 | PDOC ---
PULMONARY PROGRESS NOTES DATE: 09/03/20 TIME: 11:27 Subjective PT. remains on 2 liters NC 12F chest tube placed 09/01 no air leak on inital exam, + leak after flushing Chest tube Vitals Vital Signs Date Time Temp Pulse Resp B/P (MAP) Pulse Ox O2 Delivery O2 Flow Rate FiO2 09/03/20 07:00 98.4 78 18 95/46 (62) 95 Nasal Cannula 2.0 98.4 ROS: No Nausea, No Chest Pain, No Abdominal Pain, No Increase Cough General: Alert Lungs: Other (decrease bs left) Cardiovascular: S1, S2 Abdomen: Soft Neuro Exam: Alert, Oriented Extremities: No Edema Skin: Warm, Dry Medications Active Scripts Medications Dose Route/Sig Max Daily Dose Days Date Category No Known Medications Prior To Admisstion (Info) Each 1 Each NO HOME MEDICATIONS 08/26/20 Reported Comments 09/03 cxr Left chest catheter remains in place. Left pneumothorax is increased, now small to moderate in size and seen in both the apex and the base of the hemithorax. The cardiac silhouette and pulmonary vasculature are within normal limits. Mild right basilar subsegmental atelectasis is seen. No pleural effusion. 09/02 sig improvement in left PTX 09/01 CXR IMPRESSION: large left PTX 08/30 There is no significant pneumothorax. Possible small amount of pleural gas at the left apex 08/29 cxr reviewed No appreciable pneumothorax on either side. Left pleural catheter tip projects over the fourth rib. Streaky densities at the right lung base are more noticeable from the prior but favored on account of atelectasis. Impression . IMPRESSION: 1. Spontaneous pneumothorax secondary to underlying chronic obstructive pulmonary disease and severe upper lobe bullous lung disease 2. Acute exacerbation of chronic obstructive pulmonary disease. 3. History of cigarette use. 4. Current vaping. 5. Status post total abdominal hysterectomy, previous . 6. 12F chest tube placed 09/01, sig improvement in left ptx, + air leak Plan . PLAN continue supplemental 0xygen no air leak on initial exam, CT flushed, now positive air leak 12F chest tube placed 09/01, d/w Pulmonary at [place]. Pt accepted for endobronchial valve Socail work for transfer to [facility] for endobronchial valve, D/W patient she agrees Daily cxr NEBS IS at bedside CT chest reviewed -- severe bollus lung disease Outpatient PFT advised to quit smoking for ever D/W ANAYELI TEMPLETON MD Sep 03, 2020 11:30
[2020-09-03] MEDS: traMADol 50 MG TABLET PO PRN ×2 (12:04→17:49)
--- NOTE | 2020-09-03 12:49 | NUR ---
SS following up with discharge planning. Pt accepted at [facility] pending bed availability. Accepting physician, Dr. Alexander. SS will continue to follow for discharge planning.
[2020-09-03 15:00] VITALS: BP_SYST 114; BP_SYST 124; BP_DIAS 59; BP_DIAS 85
--- NOTE | 2020-09-03 15:09 | NUR ---
SS following up with discharge planning. Bed available at [facility]. Bed#330. Report#[phone]. Pt will discharge today and go to [facility] at 1730 via [facility] ambulance. Packet, transfer form, and ambulance form on the chart. Pt's RN notified.
--- NOTE | 2020-09-03 19:04 | NUR ---
Discharge Note: YOLANDA GLASGOW Discharge instructions and discharge home medications reviewed with Other facility and a copy given. All questions have been answered and understanding verbalized. The following instructions and handouts were given: copy of chart sent with EMS transport, report called to Jazmin on PCU @ [facility] Discontinued lines and drains: Patient discharged with IV and chest tube to left upper chest still intact. Patient discharged to with Ambulance Personnel via St[facility]
[2020-09-03] MEDS ORDERED: DOCUSATE SODIUM 100 MG CAPSULE. PO SCH (21:00)
--- NOTE | 2020-09-03 21:35 | PN ---
DATE: 09/03/2020 SUBJECTIVE: The patient is resting, slightly propped up in bed comfortably, in no apparent distress. She stated that she has no more left shoulder pain. She is able to breathe deeper without any problem. The only complaint is constipation, has had bowel movement since she was admitted. PHYSICAL EXAMINATION: GENERAL: When I examined her, she looked pale, no jaundice, cyanosis, no lymphadenopathy, no thyromegaly, no jugular venous distention or limb edema. VITAL SIGNS: Her heart rate was 78, blood pressure was 95/46, temperature was 98.4, respiratory rate was 18 and oxygen saturation was 95% on 2 liters of oxygen. HEAD, EYES, EARS, NOSE AND THROAT: Normocephalic, atraumatic. NECK: Supple. HEART: Normal first and second heart sounds, no gallop, rub or murmur. CHEST: Clear to auscultation, no crepitation or rhonchi. ABDOMEN: Scaphoid, soft, nontender. NEUROLOGIC: She is grossly intact. Her intake over the last 24 hours was 830, output was 1250. LABORATORY DATA: No lab work done this morning. ASSESSMENT: 1. Spontaneous pneumothorax secondary to underlying chronic obstructive pulmonary disease and severe upper lobe bullous lung disease. 2. Acute exacerbation of chronic obstructive pulmonary disease. 3. History of cigarette use disorder. 4. Currently, she is vaping. 5. She is status post chest tube placement that is larger in caliber. Her lung has completely expanded as seen on the chest x-ray done this morning. PLAN: To continue chest tube to suction. Continue with pain management, and as far as her constipation, start her on Colace and MiraLax. PETERSON/HAROLDO DR: Darlyn TID: [id number]
--- NOTE | 2020-09-04 08:59 | DS ---
DATE OF DISCHARGE: 09/03/2020 HOSPITAL COURSE: The patient is a 55-year-old female patient who was admitted initially on 08/27 with shortness of breath. She was evaluated at [facility], has a chest tube placed by IR and was transferred to [facility] for chest tube management. Apparently, the chest tube initial one was clamped and the lung remained expanded, so the chest tube was removed. Unfortunately, her pneumothorax occurred and eventually she had a 12-Nigerian catheter placed by the interventional radiologist and her lung has expanded. Apparently, she was continued on oxygen at 2 liters and despite having a 12-Nigerian chest tube, the left pneumothorax had increased. There is a small to moderate in size and seen in both the apex and the base of the left hemithorax. Dr. Shields contacted the surveying crew stake runner at [facility]. The patient was accepted and was transferred here for endobronchial valve. She continued to have air leak. PHYSICAL EXAMINATION: GENERAL: Prior to discharge, the patient was resting slightly propped up in bed, in no apparent respiratory distress. She was pale, but no jaundice, cyanosis or thyromegaly. No jugular venous distention. No lower limb edema. VITAL SIGNS: Her heart rate was 83, blood pressure was 114/59, temperature was 98.4, respiratory rate was 18 and oxygen saturation was 98% on 2 liters of oxygen. HEAD, EYES, EARS, NOSE, AND THROAT: Normocephalic, atraumatic. NECK: Supple. HEART: Normal first and second heart sounds. No gallop or murmur. CHEST: Central trachea, equal bilateral expansion, air entry, vesicular breath sounds. No crepitation or rhonchi. She has a 12-Nigerian chest tube to the left hemithorax. ABDOMEN: Scaphoid, soft, nontender. NEUROLOGIC: She was grossly intact. The patient was transferred to [facility] for endobronchial valve placement. FINAL DISCHARGE DIAGNOSES: 1. Spontaneous pneumothorax secondary to underlying chronic obstructive pulmonary disease and severe upper lobe bullous lung disease. 2. Acute exacerbation of chronic obstructive pulmonary disease. 3. History of cigarette smoking. 4. She is currently vaping. 5. Status post total abdominal hysterectomy, previous section. 6. She is status post pleural chest tube placement on 09/01 with continued air leak requiring transfer to [facility] for endobronchial valve placement. AMKamran/RAN DR: Darlyn TID: [id number]
[2020-09-04] MEDS ORDERED: POLYETHYLENE GLYCOL 3350 17 GM PACKET. PO SCH (09:00)
== END 2020-09-03 19:10 | disposition short-term general hospital (02) | DRG 200 ==
LOC: 2 NORTH 23:03
PROVIDERS: ADMIT Internal Medicine; ATTEND Internal Medicine
PROC: 0W9B30Z Drainage of Left Pleural Cavity with Drainage Device, Percutaneous Approach (ICD-10-PCS; 2020-08-28)
PROC: 0WPBX0Z Removal of Drainage Device from Left Pleural Cavity, External Approach (ICD-10-PCS; principal; 2020-09-02)
PROC: 0W9B30Z Drainage of Left Pleural Cavity with Drainage Device, Percutaneous Approach (ICD-10-PCS; 2020-09-02)
DX: J93.83 Other pneumothorax (principal); J94.8 Other specified pleural conditions; F17.200 Nicotine dependence, unspecified, uncomplicated; J43.9 Emphysema, unspecified; K59.00 Constipation, unspecified; Z90.710 Acquired absence of both cervix and uterus; Z20.822 Contact with and (suspected) exposure to COVID-19; Z88.8 Allergy status to other drugs, medicaments and biological substances; J98.4 Other disorders of lung
CPT/HCPCS: 32557; 36415; 71045; 71250; 80053; 85025; 85027; 85610; 87426; 99152; C1892; J2250; J2270; J2405; J3010; J3490; J7030; J7512; U0003; U0005; G0378